=== PATIENT | male | born 1945 | race Caucasian/White ===

== ENCOUNTER 2017-01-15 08:10 | Inpatient (IN) | payer MEDICARE, OTHER ==
[~2017-01-15] VITALS: Ht 181.6 cm; Wt 145.4 kg
[~2017-01-15 08:10] MED LIST: ADVAIR HFA120 INHALA IH; ALDACTONE50 MG PO; ANORO ELLIPTA1 EACH IH; ATACAND16 MG PO; BENICAR20 MG PO; BENICAR40 MG PO; BYSTOLIC10 MG PO; CARDIZEM CD,CA240 MG PO; CYANOCOBALAM1000 MCG PO; DOCUSATE SODIU100 MG PO; DUONEB 2.5-0.5 M3 ML AEROSOL; FOLIC ACID1 MG PO; HABITROL,NICODE21 MG TD; HYDROCHLOROTHIA25 MG PO; JANUVIA25 M1 PO; K-DUR20 MEQ PO; LABETALOL HCL300 MG PO; LASIX80 MG PO; LEVEMIR FL100 UNIT/1 SC; LEVOFLOXACIN750 MG PO; NIFEDICAL XL30 MG PO; NIFEDICAL XL60 MG PO; POLYETHYLENE GL17 GM PO; PREDNISONE20 MG PO; PROVENTIL HFA6.7 GM IH; Proventil,Ventolin H IH; ROCEPHIN1000 MG IM; SPIRIVA RESPIMAT4 GM IH; SPIRIVA1 INHALATI IH; SPIRONOLACTONE50 MG PO; TAMSULOSIN HCL0.4 MG PO; ULORIC40 MG PO; ULORIC80 MG PO; VICKS VAPORUB O50 GM TP; VITAMIN D-32000 UNI1 PO; ZITHROMAX250 MG PO
[2017-01-15 08:44] LABS: HEMATOCRIT 46.1 % (38.0-50.0); MCH 28.1 PG (29.0-34.0); MCHC 32.3 G/DL (30.0-36.0); MEAN PLAT.VOLUME 12.4 uM^3 (9.0-12.4); PLATELET COUNT 81 K/uL (156-360); RBC DIS.WIDTH-CV 16.2 % (11.8-14.6); RBC DIS.WIDTH-SD 51.2 % (39-53); WHITE BLOOD COUNT 12.6 K/uL (4.1-10.2)
[2017-01-15 08:44] LABS: BASE EXCESS 3.2 mEq/L (-3 to +3); BICARBONATE 29.1 mEq/L (22-26); CARBOXY HGB 2.6 % (0-5); METHEMOGLOBIN 1.1 % (0-1.5); PCO2 48 mm Hg (35-45); PO2 63 mm Hg (80-100); pH 7.39 (7.35-7.45)
[2017-01-15 08:45] LABS: COMMENTS - BLOOD GASES +C; DEVICE PB980; FI02 30 %; MODE NIV; PEEP 6 CM/H20; PRES. SUPPORT 12 CM/H2O; SITE LR +A; TOTAL RESP RATE 18 resp/min
[2017-01-15 08:51] LABS: INTER. NORMALIZED RATIO 1.1; PROTHROMBIN TIME 11.3 (9.2-11.2); PTT 27.4 (25-32)
[2017-01-15 08:59] LABS: TROP-I INTERPRETATION NEGATIVE; TROPONIN-I < 0.01 ng/mL (0.0-0.30)
[2017-01-15 09:29] LABS: EOSINOPHIL (%) 3.9 % (0-5); EOSINOPHIL COUNT 0.5 K/uL (0-0.3); HEMATOLOGY COMMENT 1 SMEAR COMPATIBLE; IMMATURE GRANULOCYTE COUNT 1.2 K/uL; LYMPHOCYTE COUNT 1.4 K/uL (1.0-2.8); MONOCYTE (%) 2.9 % (3-12); MONOCYTE COUNT 0.4 K/uL (0-0.8); NEUTROPHIL (%) 81.1 % (45-76); NEUTROPHIL COUNT 10.2 K/uL (1.8-6.4); USER ID CL
[2017-01-15] MEDS ORDERED: LO-DOSE ASPIRIN81 M2 PO (10:17)
[2017-01-15] MEDS ORDERED: LAMISIL250 MG PO (10:17)
[2017-01-15 10:21] LABS: CHLORIDE 110 mEq/L (99-109); POTASSIUM 4.2 mEq/L (3.7-5.4); SODIUM 145 mEq/L (136-147)
[2017-01-15 10:22] LABS: GLUCOSE 139 mg/dL (70-99)
[2017-01-15 10:24] LABS: ANION GAP 12 MEQ/L (2-14)
[2017-01-15 10:26] LABS: GFR ESTIMATE (CALCULATED) 49 mL/min/
[2017-01-15 10:27] LABS: UREA NITROGEN (BUN) 24 mg/dL (9-23)
[2017-01-15] MEDS ORDERED: LASIX40 MG PO (10:50)
[2017-01-15] MEDS ORDERED: CICLOPIROX30 GM TP (10:53)
[2017-01-15] MEDS ORDERED: FERREX 150150 MG PO (10:55)
[2017-01-15] MEDS ORDERED: LEVEMIR FL100 UNIT/1 SC ×2 (10:55)
[2017-01-15] MEDS ORDERED: PROAIR HFA8.5 GM IH (10:56)
[2017-01-15 11:47] LABS: POINT-OF-CARE METER ID UU14100415
[2017-01-15 17:46] LABS: ADD MIUA? YES; BILIRUBIN NEGATIVE; BLOOD NEGATIVE; COLOR YELLOW ((YELLOW)); GLUCOSE (STRIP) >=500; KETONES 5; LEUKOCYTES NEGATIVE; NITRITE NEGATIVE; PROTEIN (STRIP) 100; SPECIFIC GRAVITY 1.022 (1.000-1.030); UROBILINOGEN 0.2 MG/DL (0.2-1.0)
[2017-01-15 17:50] LABS: BACTERIA NONE SEEN /HPF; EPITHELIAL CELLS NONE SEEN /HPF; MUCUS TRACE /LPF; RED BLOOD CELLS 0-5 /HPF (0-5); WHITE BLOOD CELLS 0-5 /HPF (0-5)
[2017-01-15 19:30] VITALS: BP 154/78
[2017-01-16] VITALS (7 sets, daily range): BP systolic 115–153; BP diastolic 67–85
[2017-01-16 06:59] LABS: EOSINOPHIL (%) 0.1 % (0-5); HEMATOCRIT 44.4 % (38.0-50.0); IMMATURE GRANULOCYTE (%) 1.5 % (0.0-0.7); IMMATURE GRANULOCYTE COUNT 0.1 K/uL; LYMPHOCYTE COUNT 0.7 K/uL (1.0-2.8); MCH 27.2 PG (29.0-34.0); MCHC 31.3 G/DL (30.0-36.0); MCV 86.9 FL (86-99); MEAN PLAT.VOLUME 12.3 uM^3 (9.0-12.4); MONOCYTE (%) 1.7 % (3-12); MONOCYTE COUNT 0.2 K/uL (0-0.8); NEUTROPHIL (%) 89.3 % (45-76); NEUTROPHIL COUNT 7.9 K/uL (1.8-6.4); PLATELET COUNT 79 K/uL (156-360); RBC DIS.WIDTH-SD 50.8 % (39-53); RED BLOOD COUNT 5.11 M/uL (4.00-5.50)
[2017-01-16 07:08] LABS: WHITE BLOOD COUNT 8.8 K/uL (4.1-10.2)
[2017-01-16 07:21] LABS: ANION GAP 8 MEQ/L (2-14); CHLORIDE 107 MEQ/L (99-109); GFR ESTIMATE (CALCULATED) > 59 mL/min/; POTASSIUM 4.2 MEQ/L (3.7-5.4); SAMPLE HEMOLYSIS CHECK 0; SAMPLE ICTERIC CHECK 0; SAMPLE LIPEMIA CHECK 0; SODIUM 141 MEQ/L (136-147); UREA NITROGEN (BUN) 24 mg/dL (9-23)
[2017-01-16 07:24] LABS: GLUCOSE 225 mg/dL (70-99)
[2017-01-16 07:28] LABS: INTERNAL CONTROL VALID? YES
[2017-01-16 21:43] LABS: POINT-OF-CARE METER ID UU13113781
[2017-01-17 04:00] VITALS: BP 153/89
[2017-01-17 07:32] VITALS: BP 138/75
[2017-01-17 07:52] LABS: EOSINOPHIL (%) 0.1 % (0-5); IMMATURE GRANULOCYTE COUNT 0.1 K/uL; LYMPHOCYTE COUNT 0.7 K/uL (1.0-2.8); MONOCYTE (%) 1.7 % (3-12); MONOCYTE COUNT 0.2 K/uL (0-0.8); NEUTROPHIL (%) 92.2 % (45-76); NEUTROPHIL COUNT 13.3 K/uL (1.8-6.4)
[2017-01-17 08:07] LABS: ANION GAP 9 MEQ/L (2-14); CHLORIDE 102 MEQ/L (99-109); GFR ESTIMATE (CALCULATED) > 59 mL/min/; GLUCOSE 204 mg/dL (70-99); POTASSIUM 4.3 MEQ/L (3.7-5.4); SAMPLE HEMOLYSIS CHECK 0; SAMPLE ICTERIC CHECK 0; SAMPLE LIPEMIA CHECK 0; SODIUM 137 MEQ/L (136-147); UREA NITROGEN (BUN) 27 mg/dL (9-23)
[2017-01-17 09:58] LABS: HEMATOCRIT 45.6 % (38.0-50.0); MCH 28.4 PG (29.0-34.0); MCHC 32.2 G/DL (30.0-36.0); MCV 88.2 FL (86-99); PLAT.SUFFICIENCY DECREASED; PLATELET COUNT 96 K/uL (156-360); RBC DIS.WIDTH-CV 16.3 % (11.8-14.6); RBC DIS.WIDTH-SD 51.9 % (39-53); RED BLOOD COUNT 5.17 M/uL (4.00-5.50); USER ID STC
[2017-01-17 09:59] LABS: WHITE BLOOD COUNT 14.4 K/uL (4.1-10.2)
[2017-01-17 16:45] VITALS: BP 146/77
[2017-01-17 19:53] VITALS: BP 145/88
[2017-01-17 23:35] VITALS: BP 140/83
[2017-01-18 04:00] VITALS: BP 134/86
[2017-01-18 07:06] LABS: NRBC (%) 0.2 /100 WBC (0-0)
[2017-01-18 07:22] VITALS: BP 142/92
[2017-01-18 07:35] LABS: POINT-OF-CARE METER ID UU14174216
[2017-01-18 07:50] LABS: ANION GAP 9 MEQ/L (2-14); CHLORIDE 103 MEQ/L (99-109); GFR ESTIMATE (CALCULATED) 58 mL/min/; GLUCOSE 246 mg/dL (70-99); POTASSIUM 4.1 MEQ/L (3.7-5.4); SAMPLE HEMOLYSIS CHECK 0; SAMPLE ICTERIC CHECK 0; SAMPLE LIPEMIA CHECK 0; SODIUM 140 MEQ/L (136-147); UREA NITROGEN (BUN) 32 mg/dL (9-23)
[2017-01-18 08:15] LABS: ABS NEUTROPHIL COUNT 11.24; ANISOCYTOSIS 1+; EOSINOPHIL (%) 0.1 % (0-5); HEMATOCRIT 42.9 % (38.0-50.0); IMMATURE GRANULOCYTE (%) 2.1 % (0.0-0.7); IMMATURE GRANULOCYTE COUNT 0.3 K/uL; LYMPHOCYTE COUNT 0.5 K/uL (1.0-2.8); MCH 28.3 PG (29.0-34.0); MCHC 32.2 G/DL (30.0-36.0); MCV 87.9 FL (86-99); MEAN PLAT.VOLUME 12.7 uM^3 (9.0-12.4); MONOCYTE (%) 2.3 % (3-12); MONOCYTE COUNT 0.3 K/uL (0-0.8); NEUTROPHIL COUNT 11.1 K/uL (1.8-6.4); PLAT.SUFFICIENCY DECREASED; PLATELET COUNT 97 K/uL (156-360); RBC DIS.WIDTH-SD 50.9 % (39-53); RED BLOOD COUNT 4.88 M/uL (4.00-5.50); USER ID MCB; WHITE BLOOD COUNT 12.2 K/uL (4.1-10.2)
[2017-01-18 11:20] VITALS: BP 133/87
[2017-01-18 15:00] VITALS: BP 165/92
[2017-01-18 19:39] VITALS: BP 143/78
[2017-01-18 23:33] VITALS: BP 131/84
[2017-01-19 03:14] VITALS: BP 135/62
[2017-01-19 06:44] LABS: HEMATOCRIT 43.4 % (38.0-50.0); MCH 28.3 PG (29.0-34.0); MCHC 32.5 G/DL (30.0-36.0); MCV 87.1 FL (86-99); MEAN PLAT.VOLUME 12.7 uM^3 (9.0-12.4); PLATELET COUNT 103 K/uL (156-360); RBC DIS.WIDTH-CV 15.9 % (11.8-14.6); RBC DIS.WIDTH-SD 50.4 % (39-53); RED BLOOD COUNT 4.98 M/uL (4.00-5.50); WHITE BLOOD COUNT 11.3 K/uL (4.1-10.2)
[2017-01-19 07:08] LABS: ANION GAP 11 MEQ/L (2-14); CHLORIDE 103 MEQ/L (99-109); GFR ESTIMATE (CALCULATED) 53 mL/min/; GLUCOSE 157 mg/dL (70-99); POTASSIUM 3.8 MEQ/L (3.7-5.4); SAMPLE HEMOLYSIS CHECK 0; SAMPLE ICTERIC CHECK 0; SAMPLE LIPEMIA CHECK 0; SODIUM 141 MEQ/L (136-147); UREA NITROGEN (BUN) 34 mg/dL (9-23)
[2017-01-19 07:10] VITALS: BP 154/91
[2017-01-19 07:14] LABS: EOSINOPHIL (%) 0.1 % (0-5); IMMATURE GRANULOCYTE COUNT 0.3 K/uL; LYMPHOCYTE COUNT 0.9 K/uL (1.0-2.8); MONOCYTE (%) 4.3 % (3-12); MONOCYTE COUNT 0.5 K/uL (0-0.8); NEUTROPHIL (%) 84.2 % (45-76); NEUTROPHIL COUNT 9.5 K/uL (1.8-6.4)
[2017-01-19 08:13] LABS: HEMATOLOGY COMMENT 1 SMEAR COMPATIBLE; USER ID STC
[2017-01-19 12:25] VITALS: BP 152/81
[2017-01-19 15:55] VITALS: BP 156/82
[2017-01-19 20:00] VITALS: BP 160/87
[2017-01-19 21:35] LABS: POINT-OF-CARE METER ID UU14162508
[2017-01-20] VITALS: BP 141/90
[2017-01-20 04:00] VITALS: BP 162/74
[2017-01-20 07:09] LABS: MCH 28.2 PG (29.0-34.0); MCHC 32.3 G/DL (30.0-36.0); MCV 87.5 FL (86-99); MEAN PLAT.VOLUME 12.3 uM^3 (9.0-12.4); PLATELET COUNT 99 K/uL (156-360); RBC DIS.WIDTH-CV 15.8 % (11.8-14.6); RBC DIS.WIDTH-SD 50.4 % (39-53); RED BLOOD COUNT 5.03 M/uL (4.00-5.50); WHITE BLOOD COUNT 11.3 K/uL (4.1-10.2)
[2017-01-20 07:34] LABS: ALKALINE PHOSPHATASE 42 IU/L (3-129); ANION GAP 6 MEQ/L (2-14); CHLORIDE 102 MEQ/L (99-109); GFR ESTIMATE (CALCULATED) 58 mL/min/; GLUCOSE 118 mg/dL (70-99); POTASSIUM 3.8 MEQ/L (3.7-5.4); SAMPLE HEMOLYSIS CHECK 0; SAMPLE ICTERIC CHECK 0; SAMPLE LIPEMIA CHECK 0; SODIUM 140 MEQ/L (136-147); TOTAL BILIRUBIN 0.7 MG/DL (0.0-1.0); UREA NITROGEN (BUN) 31 mg/dL (9-23)
[2017-01-20 07:44] LABS: EOSINOPHIL (%) 1.3 % (0-5); EOSINOPHIL COUNT 0.2 K/uL (0-0.3); HEMATOLOGY COMMENT 1 SMEAR COMPATIBLE; IMMATURE GRANULOCYTE (%) 5.1 % (0.0-0.7); IMMATURE GRANULOCYTE COUNT 0.6 K/uL; LYMPHOCYTE COUNT 1.2 K/uL (1.0-2.8); MONOCYTE (%) 4.1 % (3-12); MONOCYTE COUNT 0.5 K/uL (0-0.8); NEUTROPHIL (%) 78.6 % (45-76); NEUTROPHIL COUNT 8.9 K/uL (1.8-6.4); USER ID STC
[2017-01-20 07:45] VITALS: BP 140/89
[2017-01-20 11:27] VITALS: BP 141/89
[2017-01-20] MEDS ORDERED: CEFTIN500 MG PO (11:48)
[2017-01-20] MEDS ORDERED: PREDNISONE10 MG PO (11:48)
== END 2017-01-20 16:05 | disposition home health service (06) | DRG 189 ==
LOC: EME → EDBD 08:10 → EME 08:10 → EDOF 12:14 → 4EAST 12:14 → 2EAST 01-18 15:00
PROVIDERS: Emergency Medicine; Hospitalist; Internal Medicine; Internal Medicine Nephrology
PROC: 5A09358 Assistance with Respiratory Ventilation, Less than 24 Consecutive Hours, Intermittent Positive Airway Pressure (ICD-10-PCS; principal; 2017-01-15)
PROC: 5A09357 Assistance with Respiratory Ventilation, Less than 24 Consecutive Hours, Continuous Positive Airway Pressure (ICD-10-PCS; 2017-01-16)
DX: J96.21 Acute and chronic respiratory failure with hypoxia (principal); J44.0 Chronic obstructive pulmonary disease with (acute) lower respiratory infection; J18.9 Pneumonia, unspecified organism; J44.1 Chronic obstructive pulmonary disease with (acute) exacerbation; Z68.41 Body mass index [BMI] 40.0-44.9, adult; I12.9 Hypertensive chronic kidney disease with stage 1 through stage 4 chronic kidney disease, or unspecified chronic kidney disease; N18.3 Chronic kidney disease, stage 3 (moderate); E11.22 Type 2 diabetes mellitus with diabetic chronic kidney disease; E11.65 Type 2 diabetes mellitus with hyperglycemia; E78.5 Hyperlipidemia, unspecified; G47.33 Obstructive sleep apnea (adult) (pediatric); I48.2 Chronic atrial fibrillation; D69.6 Thrombocytopenia, unspecified; R60.9 Edema, unspecified; E66.01 Morbid (severe) obesity due to excess calories; Z99.81 Dependence on supplemental oxygen; Z87.891 Personal history of nicotine dependence; Z79.82 Long term (current) use of aspirin; Z85.46 Personal history of malignant neoplasm of prostate
CPT/HCPCS: 36600; 71010; 71275; 80048; 80053; 81003; 82803; 82948; 83605; 83880; 84484; 85025; 85610; 85730; 87040; 87070; 87205; 87449; 93005; 94002; 94640; 94640 76; 94660; 94760; 94799; 99202; 99281; 99285; J0456; J0696; J1100; J1650; J1815; J2920; J2930; J7050; J7512; J7644

== ENCOUNTER 2018-02-13 09:37 | Inpatient (IN) | payer MEDICARE, OTHER ==
[~2018-02-13] VITALS: Ht 180.3 cm; Wt 138.6 kg
[~2018-02-13 09:37] MED LIST changes: +CEFTIN500 MG PO; +CICLOPIROX30 GM TP; +FERREX 150150 MG PO; +LAMISIL250 MG PO; +LASIX40 MG PO; +LO-DOSE ASPIRIN81 M2 PO; +PREDNISONE10 MG PO; +PROAIR HFA8.5 GM IH
[2018-02-13 10:45] LABS: HEMATOCRIT 41.9 % (38.0-50.0); HEMOGLOBIN 13.4 G/DL (12.5-16.6); MCH 27.8 PG (29.0-34.0); MCV 86.9 FL (86-99); NRBC (%) 0.1 /100 WBC (0-0); RBC DIS.WIDTH-CV 18.6 % (11.8-14.6); RBC DIS.WIDTH-SD 58.3 % (39-53); RED BLOOD COUNT 4.82 M/uL (4.00-5.50); WHITE BLOOD COUNT 33.8 K/uL (4.1-10.2)
[2018-02-13 10:50] LABS: CHLORIDE 107 mEq/L (99-109); POTASSIUM 4.1 mEq/L (3.7-5.4); SODIUM 140 mEq/L (136-147)
[2018-02-13 10:52] LABS: GLUCOSE 128 mg/dL (70-99)
[2018-02-13 10:56] LABS: CREATININE 1.5 mg/dL (0.6-1.3); GFR ESTIMATE (CALCULATED) 49 mL/min/ (58.99-99999); UREA NITROGEN (BUN) 22 mg/dL (9-23)
[2018-02-13 11:16] LABS: TROP-I INTERPRETATION NEGATIVE; TROPONIN-I < 0.01 ng/mL (0.0-0.30)
[2018-02-13 11:23] LABS: IMM.PLATELET FRACTION 12.7 (1-7); PLATELET COUNT 51 K/uL (156-360)
[2018-02-13] MEDS ORDERED: SPIRIVA RESPIMAT4 G1 IH (12:54)
[2018-02-13] MEDS ORDERED: ADVAIR HFA120 INHALA IH (12:54)
[2018-02-13] MEDS ORDERED: DUONEB 2.5-0.5 M3 ML AEROSOL (12:54)
[2018-02-13] MEDS ORDERED: CARDURA2 M1 PO (12:55)
[2018-02-13] MEDS ORDERED: VITAMIN E1000 UNI1 PO (12:55)
[2018-02-13] MEDS ORDERED: ELIQUIS5 MG PO (12:56)
[2018-02-13] MEDS ORDERED: LASIX40 MG PO (12:56)
[2018-02-13 16:30] VITALS: BP 106/58
[2018-02-13 20:41] VITALS: BP 114/74
[2018-02-13 22:38] VITALS: BP 132/76
[2018-02-14 05:50] LABS: HEMATOCRIT 42.1 % (38.0-50.0); MCH 27.3 PG (29.0-34.0); MCHC 30.9 G/DL (30.0-36.0); MCV 88.4 FL (86-99); NRBC (%) 0.1 /100 WBC (0-0); RBC DIS.WIDTH-CV 18.2 % (11.8-14.6); RBC DIS.WIDTH-SD 58.9 % (39-53); RED BLOOD COUNT 4.76 M/uL (4.00-5.50); WHITE BLOOD COUNT 35.1 K/uL (4.1-10.2)
[2018-02-14 06:00] VITALS: BP 124/80
[2018-02-14 06:07] LABS: CHLORIDE 106 MEQ/L (99-109); CREATININE 1.4 MG/DL (0.6-1.3); GFR ESTIMATE (CALCULATED) 53 mL/min/ (58.99-99999); POTASSIUM 4.6 MEQ/L (3.7-5.4); SODIUM 138 MEQ/L (136-147); UREA NITROGEN (BUN) 26 mg/dL (9-23)
[2018-02-14 06:08] LABS: GLUCOSE 210 mg/dL (70-99)
[2018-02-14 06:21] LABS: ABS NEUTROPHIL COUNT 30.1; ANISOCYTOSIS 2+; ATYPICAL LYMPHOCYTE 0.9 %; BASOPHILS 0.9 %; EOSINOPHIL ABS CT 0.1; EOSINOPHILS 0.4 % (0-5.0); IMM.PLATELET FRACTION 13.4 (1-7); LYMPHOCYTES 1.7 % (15.0-45.0); MACROCYTES 1+; METAMYELOCYTES 4.3 %; MICROCYTOSIS 2+; MONOCYTES 0.9 % (0-9.0); MYELOCYTES 5.2 %; PLAT.SUFFICIENCY DECREASED; PLATELET COUNT 48 K/uL (156-360); POLYCHROMASIA 1+; SEG.NEUTROPHILS 68.7 % (46.0-76.0)
[2018-02-14 07:10] VITALS: BP 123/67
[2018-02-14 12:05] VITALS: BP 118/62
[2018-02-14 15:24] VITALS: BP 129/70
[2018-02-14 20:21] VITALS: BP 143/75
[2018-02-15] VITALS (7 sets, daily range): BP systolic 117–140; BP diastolic 68–88
[2018-02-15 05:27] LABS: HEMATOCRIT 40.3 % (38.0-50.0); HEMOGLOBIN 12.2 G/DL (12.5-16.6); MCH 26.8 PG (29.0-34.0); MCHC 30.3 G/DL (30.0-36.0); MCV 88.4 FL (86-99); NRBC (%) 0.1 /100 WBC (0-0); RBC DIS.WIDTH-CV 17.8 % (11.8-14.6); RBC DIS.WIDTH-SD 57.2 % (39-53); RED BLOOD COUNT 4.56 M/uL (4.00-5.50); WHITE BLOOD COUNT 41.7 K/uL (4.1-10.2)
[2018-02-15 05:51] LABS: CHLORIDE 104 MEQ/L (99-109); CREATININE 1.4 MG/DL (0.6-1.3); GFR ESTIMATE (CALCULATED) 53 mL/min/ (58.99-99999); GLUCOSE 236 mg/dL (70-99); POTASSIUM 4.3 MEQ/L (3.7-5.4); SODIUM 139 MEQ/L (136-147); UREA NITROGEN (BUN) 29 mg/dL (9-23)
[2018-02-15 05:59] LABS: PLAT.SUFFICIENCY DECREASED; PLATELET COUNT 52 K/uL (156-360)
[2018-02-16 05:40] VITALS: BP 130/76
[2018-02-16 05:47] LABS: HEMATOCRIT 41.5 % (38.0-50.0); HEMOGLOBIN 12.3 G/DL (12.5-16.6); MCH 26.9 PG (29.0-34.0); MCHC 29.6 G/DL (30.0-36.0); MCV 90.6 FL (86-99); NRBC (%) 0.2 /100 WBC (0-0); RBC DIS.WIDTH-CV 17.9 % (11.8-14.6); RBC DIS.WIDTH-SD 58.4 % (39-53); RED BLOOD COUNT 4.58 M/uL (4.00-5.50)
[2018-02-16 05:51] LABS: CHLORIDE 106 MEQ/L (99-109); CREATININE 1.4 MG/DL (0.6-1.3); GFR ESTIMATE (CALCULATED) 53 mL/min/ (58.99-99999); GLUCOSE 244 mg/dL (70-99); POTASSIUM 4.4 MEQ/L (3.7-5.4); SODIUM 143 MEQ/L (136-147); UREA NITROGEN (BUN) 31 mg/dL (9-23); WHITE BLOOD COUNT 58.9 K/uL (4.1-10.2)
[2018-02-16 07:33] LABS: PLAT.SUFFICIENCY DECREASED
[2018-02-16 07:37] LABS: PLATELET COUNT 73 K/uL (156-360)
[2018-02-16 07:47] VITALS: BP 143/76
[2018-02-16 11:37] LABS: HEMATOCRIT 40.3 % (38.0-50.0); HEMOGLOBIN 12.6 G/DL (12.5-16.6); MCH 27.9 PG (29.0-34.0); MCHC 31.3 G/DL (30.0-36.0); MCV 89.4 FL (86-99); NRBC (%) 0.2 /100 WBC (0-0); RBC DIS.WIDTH-SD 58.3 % (39-53); RED BLOOD COUNT 4.51 M/uL (4.00-5.50)
[2018-02-16 11:38] LABS: PLATELET COUNT 101 K/uL (156-360); WHITE BLOOD COUNT 51.3 K/uL (4.1-10.2)
[2018-02-16 12:16] LABS: ANISOCYTOSIS 2+; ATYPICAL LYMPHOCYTE 1.7 %; BAND NEUTROPHILS 17.5 % (0-8.0); BASOPH.STIPPLING 1+; EOSINOPHIL ABS CT 0; LYMPHOCYTES 0.4 % (15.0-45.0); MICROCYTOSIS 1+; MONOCYTES 1.7 % (0-9.0); MYELOCYTES 3.4 %; PLAT.SUFFICIENCY DECREASED; POLYCHROMASIA 1+; SEG.NEUTROPHILS 66.3 % (46.0-76.0)
[2018-02-16 12:19] VITALS: BP 146/75
[2018-02-16 15:55] VITALS: BP 129/70
[2018-02-16 19:02] VITALS: BP 116/62
[2018-02-16 23:45] VITALS: BP 159/94
[2018-02-17 04:00] VITALS: BP 123/66
[2018-02-17 06:23] LABS: HEMATOCRIT 41.3 % (38.0-50.0); HEMOGLOBIN 12.5 G/DL (12.5-16.6); MCH 26.8 PG (29.0-34.0); MCHC 30.3 G/DL (30.0-36.0); MCV 88.4 FL (86-99); NRBC (%) 0.1 /100 WBC (0-0); RBC DIS.WIDTH-CV 17.3 % (11.8-14.6); RBC DIS.WIDTH-SD 56.3 % (39-53); RED BLOOD COUNT 4.67 M/uL (4.00-5.50)
[2018-02-17 06:25] LABS: WHITE BLOOD COUNT 52.4 K/uL (4.1-10.2)
[2018-02-17 06:38] LABS: PLAT.SUFFICIENCY VERY DECREASED; PLATELET COUNT 96 K/uL (156-360)
[2018-02-17 07:20] LABS: CHLORIDE 104 MEQ/L (99-109); CREATININE 1.4 MG/DL (0.6-1.3); GFR ESTIMATE (CALCULATED) 53 mL/min/ (58.99-99999); GLUCOSE 237 mg/dL (70-99); POTASSIUM 4.1 MEQ/L (3.7-5.4); SODIUM 142 MEQ/L (136-147); UREA NITROGEN (BUN) 32 mg/dL (9-23)
[2018-02-17 08:00] LABS: LACTATE DEHYDROGENASE 347 IU/L (20-246); URIC ACID 3.9 mg/dL (3.1-9.2)
[2018-02-17 10:07] VITALS: BP 134/80
[2018-02-17 11:57] VITALS: BP 137/80
[2018-02-17 15:24] VITALS: BP 126/77
[2018-02-17 18:06] VITALS: BP 141/86
[2018-02-17 23:28] VITALS: BP 125/58
[2018-02-18 03:23] VITALS: BP 120/68
[2018-02-18 06:20] LABS: PLATELET COUNT 107 K/uL (156-360)
[2018-02-18 06:28] LABS: HEMATOCRIT 42.6 % (38.0-50.0); HEMOGLOBIN 13.1 G/DL (12.5-16.6); MCH 26.9 PG (29.0-34.0); MCHC 30.8 G/DL (30.0-36.0); MCV 87.5 FL (86-99); NRBC (%) 0.4 /100 WBC (0-0); RBC DIS.WIDTH-CV 17.5 % (11.8-14.6); RBC DIS.WIDTH-SD 55.8 % (39-53); RED BLOOD COUNT 4.87 M/uL (4.00-5.50)
[2018-02-18 06:50] LABS: CHLORIDE 105 MEQ/L (99-109); CREATININE 1.3 MG/DL (0.6-1.3); GFR ESTIMATE (CALCULATED) 58 mL/min/ (58.99-99999); GLUCOSE 137 mg/dL (70-99); POTASSIUM 3.7 MEQ/L (3.7-5.4); SODIUM 143 MEQ/L (136-147); UREA NITROGEN (BUN) 34 mg/dL (9-23)
[2018-02-18 07:21] VITALS: BP 123/78
[2018-02-18 11:03] VITALS: BP 124/72
[2018-02-18] MEDS ORDERED: LEVOFLOXACIN750 MG PO (12:38)
[2018-02-18] MEDS ORDERED: PREDNISONE10 MG PO (12:40)
== END 2018-02-18 15:05 | disposition home health service (06) | DRG 190 ==
LOC: EME 09:37 → EDOF 11:52 → 4EAST 11:52 → ENRESERV 12:03 → EDOF 12:11 → ENRESERV 12:46 → 4EAST 16:07 → ENRESERV 02-17 12:03 → CANRESERV 02-17 12:03 → ENRESERV 02-17 15:37 → 5SOUTH 02-17 17:53
PROVIDERS: Emergency Medicine; Hospitalist
PROC: 5A09357 Assistance with Respiratory Ventilation, Less than 24 Consecutive Hours, Continuous Positive Airway Pressure (ICD-10-PCS; principal; 2018-02-13)
DX: J44.0 Chronic obstructive pulmonary disease with (acute) lower respiratory infection (principal); J18.9 Pneumonia, unspecified organism; J96.21 Acute and chronic respiratory failure with hypoxia; J44.1 Chronic obstructive pulmonary disease with (acute) exacerbation; I27.20 Pulmonary hypertension, unspecified; Z87.891 Personal history of nicotine dependence; D69.6 Thrombocytopenia, unspecified; E66.01 Morbid (severe) obesity due to excess calories; G47.33 Obstructive sleep apnea (adult) (pediatric); N18.3 Chronic kidney disease, stage 3 (moderate); I48.0 Paroxysmal atrial fibrillation; Z68.41 Body mass index [BMI] 40.0-44.9, adult; Z99.81 Dependence on supplemental oxygen; I50.33 Acute on chronic diastolic (congestive) heart failure; I13.0 Hypertensive heart and chronic kidney disease with heart failure and stage 1 through stage 4 chronic kidney disease, or unspecified chronic kidney disease; E11.22 Type 2 diabetes mellitus with diabetic chronic kidney disease; E78.5 Hyperlipidemia, unspecified; K76.0 Fatty (change of) liver, not elsewhere classified; Z79.01 Long term (current) use of anticoagulants; Z85.46 Personal history of malignant neoplasm of prostate
CPT/HCPCS: 36415; 71045; 71046; 80048; 80202; 82607; 82746; 82948; 83090 90; 83605; 83615; 83880; 83921 90; 84153; 84484; 84550; 85025; 85027; 87040; 87070; 87205; 87449; 93005; 93306; 94010; 94640; 94640 76; 94799; 99202; 99281; 99285; J0295; J0456; J0692; J0696; J1940; J2920; J2930; J3370; J7030; J7050; J7512; J7644

== ENCOUNTER 2018-04-27 17:14 | Inpatient (IN) | payer MEDICARE, OTHER ==
[~2018-04-27] VITALS: Ht 180.3 cm; Wt 138.3 kg
[~2018-04-27 17:14] MED LIST changes: +CARDURA2 M1 PO; +ELIQUIS5 MG PO; +SPIRIVA RESPIMAT4 G1 IH; +VITAMIN E1000 UNI1 PO
[2018-04-27 17:30] LABS: COMMENTS - BLOOD GASES A+C+; DEVICE NC; O2 FLOW 6 L/MIN; PCO2 46 mm Hg (35-45); PO2 48 mm Hg (80-100); SITE RR; TOTAL RESP RATE 36 resp/min; pH 7.38 (7.35-7.45)
[2018-04-27 17:31] LABS: BASE EXCESS 1.5 mEq/L (-3 to +3); BICARBONATE 27.2 mEq/L (22-26); O2 SATURATION (CALCULATED) 87.7 % (95-99)
[2018-04-27 17:54] LABS: HEMATOCRIT 41.6 % (38.0-50.0); HEMOGLOBIN 12.7 G/DL (12.5-16.6); MCH 27.4 PG (29.0-34.0); MCHC 30.5 G/DL (30.0-36.0); MCV 89.7 FL (86-99); NRBC (%) 0.3 /100 WBC (0-0); PLATELET COUNT 89 K/uL (156-360); RBC DIS.WIDTH-CV 18.6 % (11.8-14.6); RBC DIS.WIDTH-SD 59.7 % (39-53); RED BLOOD COUNT 4.64 M/uL (4.00-5.50); WHITE BLOOD COUNT 39.2 K/uL (4.1-10.2)
[2018-04-27 18:01] LABS: INTER. NORMALIZED RATIO 1.2
[2018-04-27 18:02] LABS: ALBUMIN 3.6 g/dL (3.2-4.8); CHLORIDE 108 mEq/L (99-109); POTASSIUM 4.4 mEq/L (3.7-5.4); SODIUM 145 mEq/L (136-147)
[2018-04-27 18:03] LABS: MAGNESIUM 2.2 mg/dL (1.3-2.7)
[2018-04-27 18:04] LABS: GLUCOSE 122 mg/dL (70-99); PTT 29.8 SEC (25-37)
[2018-04-27 18:05] LABS: TOTAL PROTEIN 6.3 g/dL (6.4-8.3)
[2018-04-27 18:08] LABS: ALKALINE PHOSPHATASE 63 IU/L (3-129); CREATININE 1.4 mg/dL (0.6-1.3); GFR ESTIMATE (CALCULATED) 53 mL/min/ (58.99-99999)
[2018-04-27 18:09] LABS: UREA NITROGEN (BUN) 26 mg/dL (9-23)
[2018-04-27 18:10] LABS: AST (GOT) 13 IU/L (2-34)
[2018-04-27 18:11] LABS: ALT (GPT) 21 IU/L (3-49)
[2018-04-27 18:14] LABS: TROP-I INTERPRETATION NEGATIVE; TROPONIN-I 0.02 ng/mL (0.0-0.30)
[2018-04-27] MEDS ORDERED: JANUVIA25 M1 PO (18:14)
[2018-04-27] MEDS ORDERED: CYANOCOBALAM1000 MCG PO (18:15)
[2018-04-27 18:46] LABS: ABS NEUTROPHIL COUNT 30.5; ANISOCYTOSIS 2+; BAND NEUTROPHILS 5.9 % (0-8.0); EOSINOPHIL ABS CT 1.1; EOSINOPHILS 2.7 % (0-5.0); HELMET CELLS 1+; LYMPHOCYTES 7.2 % (15.0-45.0); METAMYELOCYTES 1.8 %; MICROCYTOSIS 1+; MONOCYTES 1.4 % (0-9.0); NUCLEATED RBC'S 0.9; PLAT.SUFFICIENCY DECREASED; POIKILOCYTOSIS 1+; POLYCHROMASIA 1+; SEG.NEUTROPHILS 71.9 % (46.0-76.0); SMUDGE CELLS 1.8; SPHEROCYTES 1+; TARGET CELLS 1+; TEAR DROP CELLS 1+
[2018-04-27 19:39] LABS: PCO2 47 mm Hg (35-45)
[2018-04-27 19:40] LABS: BASE EXCESS 3.5 mEq/L (-3 to +3); BICARBONATE 29.1 mEq/L (22-26); COMMENTS - BLOOD GASES A+C+; DEVICE HFNC; O2 FLOW 12 L/MIN; O2 SATURATION (CALCULATED) 87.6 % (95-99); PO2 47 mm Hg (80-100); SITE RR; TOTAL RESP RATE 25 resp/min
[2018-04-27 20:53] LABS: APPEARANCE CLEAR ((CLEAR)); BILIRUBIN NEGATIVE; BLOOD NEGATIVE; COLOR STRAW ((YELLOW)); GLUCOSE (STRIP) NEGATIVE; KETONES NEGATIVE; LEUKOCYTES NEGATIVE; NITRITE NEGATIVE; PROTEIN (STRIP) NEGATIVE; SPECIFIC GRAVITY 1.006 (1.000-1.030); UCUL ADDED? NO; UROBILINOGEN 0.2 MG/DL (0.2-1.0)
[2018-04-27 21:45] VITALS: BP 120/87
[2018-04-27 22:00] VITALS: BP 130/86
[2018-04-27 23:00] VITALS: BP 125/94
[2018-04-28] VITALS (23 sets, daily range): BP systolic 119–153; BP diastolic 63–92
[2018-04-28 04:50] LABS: BASE EXCESS 3.5 mEq/L (-3 to +3); BICARBONATE 29.1 mEq/L (22-26); CARBOXY HGB 3.3 % (0-5); METHEMOGLOBIN 0.6 % (0-1.5); PCO2 47 mm Hg (35-45); PO2 78 mm Hg (80-100)
[2018-04-28 04:51] LABS: COMMENTS - BLOOD GASES A+C+; CONTINUOUS POS AIRWAY PRESSURE 6 cm H2O; DEVICE 840; FI02 50 %; MODE SPONT; PRES. SUPPORT 14 CM/H2O; SITE RR; TOTAL RESP RATE 20 resp/min
[2018-04-28 05:45] LABS: CHLORIDE 107 MEQ/L (99-109); CREATININE 1.3 MG/DL (0.6-1.3); GFR ESTIMATE (CALCULATED) 58 mL/min/ (58.99-99999); GLUCOSE 174 mg/dL (70-99); POTASSIUM 4.4 MEQ/L (3.7-5.4); SODIUM 145 MEQ/L (136-147); UREA NITROGEN (BUN) 26 mg/dL (9-23)
[2018-04-28 05:48] LABS: HEMATOCRIT 40.6 % (38.0-50.0); MCH 26.3 PG (29.0-34.0); MCHC 29.6 G/DL (30.0-36.0); MCV 88.8 FL (86-99); NRBC (%) 0.1 /100 WBC (0-0); PLATELET COUNT 84 K/uL (156-360); RBC DIS.WIDTH-CV 18.1 % (11.8-14.6); RBC DIS.WIDTH-SD 57.6 % (39-53); RED BLOOD COUNT 4.57 M/uL (4.00-5.50)
[2018-04-28 05:53] LABS: WHITE BLOOD COUNT 45.8 K/uL (4.1-10.2)
[2018-04-28 10:48] LABS: HEMOGLOBIN A1c (GLYCOHEMOGLOB) 6.7 % (Below 5.7)
[2018-04-29] VITALS (21 sets, daily range): BP systolic 114–150; BP diastolic 56–97
[2018-04-30] VITALS (16 sets, daily range): BP systolic 125–148; BP diastolic 74–98
[2018-05-01 02:38] VITALS: BP 143/85
[2018-05-01 06:55] VITALS: BP 124/63
[2018-05-01 07:10] LABS: HEMATOCRIT 40.4 % (38.0-50.0); HEMOGLOBIN 12.1 G/DL (12.5-16.6); MCH 26.6 PG (29.0-34.0); MCV 88.8 FL (86-99); NRBC (%) 0.1 /100 WBC (0-0); RBC DIS.WIDTH-CV 17.5 % (11.8-14.6); RBC DIS.WIDTH-SD 55.8 % (39-53); RED BLOOD COUNT 4.55 M/uL (4.00-5.50)
[2018-05-01 07:11] LABS: PLATELET COUNT 111 K/uL (156-360); WHITE BLOOD COUNT 57.6 K/uL (4.1-10.2)
[2018-05-01 07:26] LABS: CHLORIDE 103 MEQ/L (99-109); CREATININE 1.3 MG/DL (0.6-1.3); GFR ESTIMATE (CALCULATED) 58 mL/min/ (58.99-99999); GLUCOSE 235 mg/dL (70-99); POTASSIUM 4.4 MEQ/L (3.7-5.4); SODIUM 141 MEQ/L (136-147); UREA NITROGEN (BUN) 29 mg/dL (9-23)
[2018-05-01 09:21] LABS: COMMENTS - BLOOD GASES A+C+; DEVICE HFNC; O2 FLOW 11 L/MIN; SITE LR; TOTAL RESP RATE 18 resp/min; pH 7.39 (7.35-7.45)
[2018-05-01 09:22] LABS: BASE EXCESS 3.9 mEq/L (-3 to +3); BICARBONATE 29.7 mEq/L (22-26); CARBOXY HGB 3.6 % (0-5); METHEMOGLOBIN 0.2 % (0-1.5); PCO2 49 mm Hg (35-45); PO2 64 mm Hg (80-100)
[2018-05-01 15:50] VITALS: BP 137/79
[2018-05-01 19:21] VITALS: BP 140/88
[2018-05-01 21:35] VITALS: BP 128/76
[2018-05-01 23:20] VITALS: BP 135/81
[2018-05-02 06:53] LABS: ALBUMIN 3.3 G/DL (3.2-4.8); ALKALINE PHOSPHATASE 44 IU/L (3-129); ALT (GPT) 54 IU/L (3-49); AST (GOT) 22 IU/L (2-34); CHLORIDE 100 MEQ/L (99-109); CREATININE 1.2 MG/DL (0.6-1.3); GFR ESTIMATE (CALCULATED) > 59 mL/min/ (58.99-99999); GLUCOSE 283 mg/dL (70-99); POTASSIUM 4.6 MEQ/L (3.7-5.4); SODIUM 142 MEQ/L (136-147); TOTAL BILIRUBIN 0.9 MG/DL (0.0-1.0); TOTAL PROTEIN 5.5 G/DL (6.4-8.3); UREA NITROGEN (BUN) 26 mg/dL (9-23)
[2018-05-02 06:56] LABS: HEMATOCRIT 39.8 % (38.0-50.0); HEMOGLOBIN 11.9 G/DL (12.5-16.6); MCH 26.4 PG (29.0-34.0); MCHC 29.9 G/DL (30.0-36.0); MCV 88.2 FL (86-99); NRBC (%) 0.1 /100 WBC (0-0); PLATELET COUNT 105 K/uL (156-360); RBC DIS.WIDTH-CV 17.2 % (11.8-14.6); RBC DIS.WIDTH-SD 55.2 % (39-53); RED BLOOD COUNT 4.51 M/uL (4.00-5.50)
[2018-05-02 06:59] LABS: ABS NEUTROPHIL COUNT 51.6; ANISOCYTOSIS 1+; ATYPICAL LYMPHOCYTE 3.4 %; BAND NEUTROPHILS 3.9 % (0-8.0); EOSINOPHIL ABS CT 0.2; EOSINOPHILS 0.4 % (0-5.0); LYMPHOCYTES 1.3 % (15.0-45.0); METAMYELOCYTES 1.7 %; MICROCYTOSIS 1+; MONOCYTES 5.6 % (0-9.0); MYELOCYTES 4.7 %; PLAT.SUFFICIENCY DECREASED; POLYCHROMASIA 1+; TOX.VACUOLIZATION 2+
[2018-05-02 07:05] LABS: WHITE BLOOD COUNT 62.3 K/uL (4.1-10.2)
[2018-05-02 07:10] VITALS: BP 130/73
[2018-05-02 15:25] VITALS: BP 123/77
[2018-05-02 21:23] VITALS: BP 127/69
[2018-05-02 23:39] VITALS: BP 143/82
[2018-05-03 07:10] VITALS: BP 126/71
[2018-05-03 16:05] VITALS: BP 151/88
[2018-05-03 23:10] VITALS: BP 149/82
[2018-05-04 08:34] VITALS: BP 115/64
[2018-05-04] MEDS ORDERED: LEVOFLOXACIN750 MG PO (14:33)
[2018-05-04] MEDS ORDERED: PREDNISONE10 MG PO ×2 (14:45→14:46)
[2018-05-04] MEDS ORDERED: PRILOSEC20 MG PO (14:47)
[2018-05-04] MEDS ORDERED: NOVOLOG 10100 UNITS/ SC (14:52)
== END 2018-05-04 17:24 | disposition home or self-care (01) | DRG 190 ==
LOC: EME 17:14 → 4WEST 20:30 → EDOF 20:30 → ENRESERV 20:35 → 4WEST 21:51 → ENRESERV 04-30 15:16 → 5EAST 04-30 18:28 → ENPENDDIS 05-04 16:30 → 5EAST 05-04 17:24
PROVIDERS: Emergency Medicine; Family Medicine; Hospitalist; Surgery
PROC: 5A0945Z Assistance with Respiratory Ventilation, 24-96 Consecutive Hours (ICD-10-PCS; principal; 2018-04-27)
PROC: 5A09457 Assistance with Respiratory Ventilation, 24-96 Consecutive Hours, Continuous Positive Airway Pressure (ICD-10-PCS; 2018-04-30)
DX: J44.0 Chronic obstructive pulmonary disease with (acute) lower respiratory infection (principal); J96.21 Acute and chronic respiratory failure with hypoxia; J15.9 Unspecified bacterial pneumonia; I13.0 Hypertensive heart and chronic kidney disease with heart failure and stage 1 through stage 4 chronic kidney disease, or unspecified chronic kidney disease; J44.1 Chronic obstructive pulmonary disease with (acute) exacerbation; E66.9 Obesity, unspecified; E11.22 Type 2 diabetes mellitus with diabetic chronic kidney disease; I50.9 Heart failure, unspecified; D69.6 Thrombocytopenia, unspecified; E78.5 Hyperlipidemia, unspecified; N18.3 Chronic kidney disease, stage 3 (moderate); Z96.653 Presence of artificial knee joint, bilateral; Z87.891 Personal history of nicotine dependence; Z79.52 Long term (current) use of systemic steroids; Z85.46 Personal history of malignant neoplasm of prostate; Z68.41 Body mass index [BMI] 40.0-44.9, adult; Z92.3 Personal history of irradiation; Z79.4 Long term (current) use of insulin; R09.81 Nasal congestion; D72.823 Leukemoid reaction; G47.33 Obstructive sleep apnea (adult) (pediatric); I48.91 Unspecified atrial fibrillation; D72.829 Elevated white blood cell count, unspecified
CPT/HCPCS: 36600; 71045; 80048; 80053; 81003; 82803; 82948; 83036; 83605; 83735; 83880; 84484; 85025; 85027; 85610; 85730; 87040; 87641; 93005; 94002; 94003; 94640; 94640 76; 94660; 94667; 94760; 94799; 97530 GO; 99202; 99281; 99285; J0456; J1644; J1815; J1940; J2543; J2920; J2930; J3370; J3475; J7050; J7512; S0028